=== PATIENT | female | born 1970 | race Caucasian/White ===

== ENCOUNTER 2017-02-19 09:53 | Day surgery (SDC) | payer BC ==
[~2017-02-19 09:53] MED LIST: FENTANYL 100MCG/2ML SOL ONE; LIDOCAINE HCL 1% MPF SOL ONE; MIDAZOLAM 2 MG/2 ML SOL ONE; PROPOFOL 500 MG/50 ML EMU IV ONE
[2017-02-19] MEDS ORDERED: CLINDAMYCIN 150 MG/ML SOL ONE (10:30)
[2017-02-19] MEDS: LIDOCAINE HCL 1% MPF SOL ONE ×2 (11:14→11:22)
[2017-02-19 12:15] VITALS: BP 123/74; PULSE 70; RESP 20; TEMP 97; O2SAT 96
== END 2017-02-19 12:30 | disposition home or self-care (01) ==
LOC: SURG 09:53
PROVIDERS: ATTEND Orthopaedic Surgery
DX: G56.02 Carpal tunnel syndrome, left upper limb (principal)
CPT/HCPCS: 64721; J2001 ×2; J2250; J2704; J3010; J3490; 99070